=== PATIENT | male | born 1970 | race Caucasian/White ===

== ENCOUNTER 2016-10-22 22:22 | Emergency (ER) | payer OTHER, MEDICARE ==
[~2016-10-22] VITALS: Ht 167.6 cm; Wt 108.9 kg
[~2016-10-22 22:22] MED LIST: ABILIFY 10 MG10 MG PO; ALBUTEROL0.09 MG/A1 INH; AMARYL 2 MG2 MG PO; AMARYL4 MG PO; BENZTROPINE ME0.5 MG PO; BYDUREON2 M1; BYDUREON2 MG SC; DIVALPROEX SOD500 MG PO; ERGOCALCIFER50000 IU PO; FLEXERIL10 MG PO; IBU800 MG PO; IBUPROFEN600 M1 PO; IBUPROFEN800 M1 PO; JARDIANCE10 M1 PO; LEVAQUIN500 MG PO; LOVAZA1 GM PO; LYRICA100 MG PO; MEDROL4 M2 PO; METFORMIN HCL1000 MG PO; MOTRIN 600 MG600 MG PO; MOTRIN800 MG PO; PERCOCET 325 MG1 TA2 PO; SIMVASTATIN20 MG PO; TRAZODONE HCL50 M1 PO; TRAZODONE100 MG PO; TRIAMCINOLONE A15 G2 TOP; VICTOZA 3-0.6 MG/0.1 SC; VICTOZA6 MG/ML SC; VISTARIL50 M1 PO; WELCHOL 625 MG625 MG PO; ZETIA10 MG PO; [UNRECOGNIZED DRUG - OTHER]; [UNRECOGNIZED DRUG - OTHER] PO
[2016-10-22 22:34] VITALS: BP 111/76
[2016-10-23] MEDS ORDERED: GLIMEPIRIDE4 M1 PO (00:12)
[2016-10-23] MEDS ORDERED: GABAPENTIN300 M2 PO (00:13)
[2016-10-23] MEDS ORDERED: BENAZEPRIL-HCT1 EAC1 PO (00:13)
[2016-10-23] MEDS ORDERED: BENZTROPINE ME0.5 M1 PO (00:13)
[2016-10-23] MEDS ORDERED: PRAVASTATIN SOD20 M2 PO (00:13)
--- NOTE | 2016-10-23 00:32 | ED ANKLE/FOOT INJURY COMPLAINT ---
History of Present Illness General Chief Complaint: General Adult Stated Complaint: "BIBA STUBBED RT GREAT TOE " Source: patient Exam Limitations: no limitations Vital Signs & Intake/Output Vital Signs & Intake/Output Vital Signs Date Time Temp Pulse Resp B/P Pulse O2 O2 Flow FiO2 Ox Delivery Rate 10/22 2234 97.0 99 20 111/76 95 Room Air ED Intake and Output 10/23 0000 10/22 1200 Intake Total Output Total Balance Patient 240 lb Weight Allergies Coded Allergies: Penicillins (RASH, ABD PAIN 10/22/16) Reconcile Medications Aripiprazole (Abilify) 10 MG TABLET 1 TAB PO QAM MENTAL HEALTH (Reported) BENAZEPRIL/HYDROCHLOROTHIAZIDE (Benazepril-Hctz 10-12.5 MG Tab) 1 TAB TAB 1 TAB PO QAM BP (Reported) Benazepril/Hydrochlorothiazide (Benazepril-Hctz 10-12.5 MG Tab) 10 MG-12.5 MG TABLET 1 TAB PO DAILY BP (Reported) Benztropine Mesylate 0.5 MG TAB 1 TAB PO QPM MENTAL HEALTH (Reported) Benztropine Mesylate 0.5 MG TABLET 1 TAB PO BID ANXIETY (Reported) Colesevelam Hydrochloride (Welchol) 625 MG TABLET 2 TAB PO BID CHOLESTEROL ( Reported) Diclofenac Sodium 75 MG TABLET.DR 1 TAB PO BID PRN PAIN Divalproex Sodium (Divalproex Sodium ER) 500 MG TAB.ER.24H 2 TAB PO BID SEE MED NOTE (Reported) Empagliflozin (Jardiance) 10 MG TABLET 1 TAB PO DAILY DIABETES (Reported) ERGOCALCIFEROL (VITAMIN D2) (Ergocalciferol (Vitamin D2)) 50,000 IU CAP 1 CAP PO QTUES SUPPLEMENT (Reported) Ezetimibe (Zetia) 10 MG TAB 1 TAB PO QPM CHOLESTEROL (Reported) Gabapentin 300 MG CAPSULE 1 CAP PO TID NEUROPATHY (Reported) Glimepiride (Amaryl) 4 MG TAB 1 TAB PO BID DIABETES (Reported) Glimepiride 4 MG TABLET 1 TAB PO DAILY DM (Reported) Liraglutide (Victoza 3-Сергей) 0.6 MG/0.1 ML PEN.INJCTR 1.8 MG SC DAILY DIABETES (Reported) METFORMIN HCL (Metformin HCl) 1,000 MG TABLET 1 TAB PO BID DIABETES (Reported ) [id number]-[id number] Ethyl Esters (Lovaza) 1 GM CAP 2 CAP PO BID CHOLESTEROL ( Reported) Pravastatin Sodium 20 MG TABLET 1 TAB PO DAILY CHOL (Reported) Simvastatin (Zocor) 20 MG TAB 1 TAB PO QPM CHOLESTEROL (Reported) Triamcinolone Acetonide 0.5 % CREAM..G. 1 BERTIN TOP BID rash apply to affected area(s) Triage Note: TRIAGE: PT BIBA TO TRIAGE C/C R GREAT TOE STUB INJURY S/P KICKING NIGHTSTAND AFTER HAVING VERBAL ARGUEMENT WITH HIS ROOMMATE. Triage Nurses Notes Reviewed? yes HPI: Patient presents for evaluation of an abrupt onset of severe right great toe and foot pain that occurred earlier this evening after an argument with his roommate. Patient states he became so frustrated that he kicked a nightstand. Since then he's had a sharp severe and aching pain gets worse with ambulation and palpation. Past History Travel History Traveled to [place] past 21 day No Medical History Any Pertinent Medical History? see below for history Neurological: seizure, EPILEPSY EENT: NONE Cardiovascular: hypertension, hyperlipidemia Respiratory: NONE Gastrointestinal: NONE Hepatic: NONE Renal: NONE Musculoskeletal: NONE Psychiatric: depression Endocrine: diabetes Blood Disorders: NONE Cancer(s): NONE STRIP DEBURRER/Reproductive: NONE Surgical History Surgical History: hernia repair-inguinal Psychosocial History What is your primary language Arabic Tobacco Use: Never used ETOH Use: denies use Illicit Drug Use: denies illicit drug use Family History Family History, If Any: MOTHER FH: colon cancer FATHER FH: colon cancer FH: diabetes mellitus FH: hypertension Hx Contributory? No Review of Systems Review of Systems Constitutional: Reports: no symptoms. EENTM: Reports: no symptoms. Respiratory: Reports: no symptoms. Cardiovascular: Reports: no symptoms. GI: Reports: no symptoms. Genitourinary: Reports: no symptoms. Musculoskeletal: Reports: see HPI. Skin: Reports: no symptoms. Neurological/Psychological: Reports: no symptoms. Hematologic/Endocrine: Reports: no symptoms. Immunologic/Allergic: Reports: no symptoms. All Other Systems: Reviewed and Negative Physical Exam Physical Exam Leg/Knee/Thigh Left: SEE BELOW Comments: Gen.: Well-nourished, well-developed, no acute respiratory distress. Head: Normocephalic, atraumatic. Eyes: Normal inspection bilaterally Ears: Normal inspection bilaterally Nose: Normal inspection, nasal cannula in place Throat/mouth : Moist mucosa Neck: Supple, full range of motion, no goiter Heart: Regular rate and rhythm Lungs: Quiet respirations Back: Normal range of motion Extremities: Right foot/toes: Tenderness of the distal right foot and toes with no apparent soft tissue swelling. Mild ecchymoses of the dorsal aspect of the right great toe, second and third toes. The foot and toes are neurovascularly intact. Neurologic: Cranial nerves grossly intact, speech is clear Skin: warm and dry Psychiatric: Calm, cooperative, no apparent delusions or hallucinations Progress Differential Diagnosis: fracture, dislocation, sprain, contusion Plan of Care: Orders Procedure Date/time Status XRY-TOES, RIGHT 10/23 30 Active XRY-FOOT COMPLETE, RIGHT 10/23 30 Active Current Medications Sig/Darrin Start time Last Medication Dose Stop Time Status Admin Naproxen 500 MG ONCE ONE 10/23 199 UNVr (Naprosyn) 10/23 200 Diagnostic Imaging: Viewed by Me: Radiology Read. Discussed w/RAD: Radiology Read. Radiology Impression: PATIENT: VIKY PAK PRESENT AGE: 45 PATIENT ACCOUNT NO: [id number] : 69 LOCATION: [facility] ORDERING PHYSICIAN: RANJIT PANDA MD SERVICE DATE: 10/23/16 EXAM TYPE: RAD - XRY-FOOT COMPLETE, R; XRY-TOES, RIGHT EXAMINATION: XR FOOT, RIGHT XR TOES, RIGHT CLINICAL INFORMATION: Blunt trauma to the right toes and foot COMPARISON: None TECHNIQUE: 2 views of the right foot. 3 views of the right toes. FINDINGS: Osseous alignment is anatomic. No acute fracture is seen. Small chronic appearing osseous densities along the lateral aspect of the midfoot favor multifocal os peroneum. Posterior calcaneal spurring is noted. No significant focal soft tissue abnormality is seen. IMPRESSION: No acute findings identified. DICTATED BY: QUYEN TILLEY MD DATE/TIME DICTATED:10/23/16207 DIESEL DRAGLINE OPERATOR:YCRUS DATE/TIME TRANSCRIBED:10/23/16207 CONFIDENTIAL, DO NOT COPY WITHOUT APPROPRIATE AUTHORIZATION. <Electronically signed in Other Vendor System> SIGNED BY: QUYEN TILLEY MD 10/23/16215 Comments: Patient updated on test results and provided a cast shoe to support the foot and toes. Departure Departure Disposition: HOME OR SELF CARE Condition: Stable Clinical Impression Primary Impression: Contusion of great toe of right foot Qualifiers: Encounter type: initial encounter Damage to nail status: without damage Qualified Code: S90.111A - Contusion of right great toe without damage to nail, initial encounter Secondary Impressions: Right foot sprain Qualifiers: Encounter type: initial encounter Qualified Code: S93.601A - Unspecified sprain of right foot, initial encounter Referrals: JOSIAS VAUGHN (PCP/Family) Additional Instructions: Ice and elevation for 20 minutes at a time 2-3 times a day over the next 48 hours. Voltaren as prescribed for pain. Activity as otherwise tolerated. Follow-up with your primary care doctor for reevaluation in 10 days if not improving. Return if any concerns or sudden worsening. Please note that there might be incidental findings in your evaluation that are unrelated to the current emergency department visit. Please notify your primary care doctor about this emergency department visit in order to obtain and review all of the testing performed so that these incidental findings can be monitored as needed. If you had an x-ray performed, please understand that some fractures may not be seen on the initial set of x-rays. If your symptoms persist you might need a repeat set of x-rays to check for such a fracture. If you had a laceration evaluated, please understand that foreign bodies such as glass or wood may not be visible to the naked eye or on plain x-rays. If the wound becomes red, swollen, increasingly more painful or if there is any drainage from the wound, please have it reevaluated by a physician for the possibility of a retained foreign body. Thank you for choosing the [facility] Emergency Department for your care. It was a pleasure to serve you today. Ranjit Panda M.D. [facility] Departure Forms: Customer Survey General Discharge Information Prescriptions: Current Visit Scripts Diclofenac Sodium 1 TAB PO BID PRN PAIN #14 TAB
[2016-10-23] MEDS ORDERED: DICLOFENAC SODI75 M2 PO (01:56)
--- NOTE | 2016-10-23 02:16 | RADIOLOGY REPORT ---
EXAMINATION: XR FOOT, RIGHT XR TOES, RIGHT CLINICAL INFORMATION: Blunt trauma to the right toes and foot COMPARISON: None TECHNIQUE: 2 views of the right foot. 3 views of the right toes. FINDINGS: Osseous alignment is anatomic. No acute fracture is seen. Small chronic appearing osseous densities along the lateral aspect of the midfoot favor multifocal os peroneum. Posterior calcaneal spurring is noted. No significant focal soft tissue abnormality is seen. IMPRESSION: No acute findings identified.
== END 2016-10-23 02:05 ==
LOC: ERH 22:22
DX: S90.111A Contusion of right great toe without damage to nail, initial encounter (principal); S93.601A Unspecified sprain of right foot, initial encounter; W22.03XA Walked into furniture, initial encounter
CPT/HCPCS: 73630-RT; 73660-RT

== ENCOUNTER 2016-11-14 22:23 | Emergency (ER) | payer OTHER, MEDICARE ==
[~2016-11-14] VITALS: Ht 167.6 cm; Wt 106.1 kg
[~2016-11-14 22:23] MED LIST changes: +BENAZEPRIL-HCT1 EAC1 PO; +BENZTROPINE ME0.5 M1 PO; +DICLOFENAC SODI75 M2 PO; +GABAPENTIN300 M2 PO; +GLIMEPIRIDE4 M1 PO; +PRAVASTATIN SOD20 M2 PO
--- NOTE | 2016-11-14 23:19 | RADIOLOGY REPORT ---
EXAMINATION: XR WRIST, RIGHT CLINICAL INFORMATION: Pain. COMPARISON: Right wrist 08/10/2013 TECHNIQUE: 4 views. of the right wrist. FINDINGS: Expansile radiolucent lesion of the distal ulnar diaphyseal shaft seen on the prior exam of 08/11/2013 now has a nondisplaced transverse fracture through it. Distal radius normal. The carpal bones, radiocarpal and metacarpal carpal joints are normal. IMPRESSION: Nondisplaced transverse fracture through expansile radiolucent lesion in the distal ulna.
--- NOTE | 2016-11-14 23:26 | ED UPPER/LOWER EXTREMITY COMPL ---
History of Present Illness General Chief Complaint: Hand or Wrist Injury Stated Complaint: FALL, RIGHT WRIST INJURY Source: patient Exam Limitations: no limitations Vital Signs & Intake/Output Vital Signs & Intake/Output Vital Signs Date Time Temp Pulse Resp B/P Pulse O2 O2 Flow FiO2 Ox Delivery Rate 11/14 2330 97.9 99 18 136/89 95 Room Air ED Intake and Output 11/15 0000 03 1200 Intake Total Output Total Balance Patient 234 lb Weight Allergies Coded Allergies: Penicillins (RASH, ABD PAIN 10/22/16) Reconcile Medications Aripiprazole (Abilify) 10 MG TABLET 1 TAB PO QAM MENTAL HEALTH (Reported) BENAZEPRIL/HYDROCHLOROTHIAZIDE (Benazepril-Hctz 10-12.5 MG Tab) 1 TAB TAB 1 TAB PO QAM BP (Reported) Benazepril/Hydrochlorothiazide (Benazepril-Hctz 10-12.5 MG Tab) 10 MG-12.5 MG TABLET 1 TAB PO DAILY BP (Reported) Benztropine Mesylate 0.5 MG TAB 1 TAB PO QPM MENTAL HEALTH (Reported) Benztropine Mesylate 0.5 MG TABLET 1 TAB PO BID ANXIETY (Reported) Colesevelam Hydrochloride (Welchol) 625 MG TABLET 2 TAB PO BID CHOLESTEROL ( Reported) Diclofenac Sodium 75 MG TABLET.DR 1 TAB PO BID PRN PAIN Divalproex Sodium (Divalproex Sodium ER) 500 MG TAB.ER.24H 2 TAB PO BID SEE MED NOTE (Reported) Empagliflozin (Jardiance) 10 MG TABLET 1 TAB PO DAILY DIABETES (Reported) ERGOCALCIFEROL (VITAMIN D2) (Ergocalciferol (Vitamin D2)) 50,000 IU CAP 1 CAP PO QTUES SUPPLEMENT (Reported) Ezetimibe (Zetia) 10 MG TAB 1 TAB PO QPM CHOLESTEROL (Reported) Gabapentin 300 MG CAPSULE 1 CAP PO TID NEUROPATHY (Reported) Glimepiride (Amaryl) 4 MG TAB 1 TAB PO BID DIABETES (Reported) Glimepiride 4 MG TABLET 1 TAB PO DAILY DM (Reported) Ibuprofen 600 MG TABLET 1 TAB PO TID PRN PAIN with food Liraglutide (Victoza 3-Сергей) 0.6 MG/0.1 ML PEN.INJCTR 1.8 MG SC DAILY DIABETES (Reported) METFORMIN HCL (Metformin HCl) 1,000 MG TABLET 1 TAB PO BID DIABETES (Reported ) Wieeg-4-Aggy Ethyl Esters (Lovaza) 1 GM CAP 2 CAP PO BID CHOLESTEROL ( Reported) Pravastatin Sodium 20 MG TABLET 1 TAB PO DAILY CHOL (Reported) Simvastatin (Zocor) 20 MG TAB 1 TAB PO QPM CHOLESTEROL (Reported) Triamcinolone Acetonide 0.5 % CREAM..G. 1 BERTIN TOP BID rash apply to affected area(s) Triage Nurses Notes Reviewed? yes Onset: Abrupt Duration: constant Timing: single episode today Severity: severe Severity Numbers: 10 HPI: PATIENT IS A 46-YEAR-OLD MALE WHO PRESENTS EMERGENCY AND THAT TODAY PATIENT TRIPPED IN HIS house in which he braces fall with his right arm in which the forearm mid aspect struck a piece of furniture resulting acute onset of sharp stabbing severe pain. Skin is intact. Denies any head strike. Patient is right arm dominant. Patient denies any elbow or wrist pain. (AMY HAHN) Past History Travel History Traveled to [place] past 21 day No Medical History Any Pertinent Medical History? see below for history Neurological: seizure, EPILEPSY EENT: NONE Cardiovascular: hypertension, hyperlipidemia Respiratory: NONE Gastrointestinal: NONE Hepatic: NONE Renal: NONE Musculoskeletal: NONE Psychiatric: depression Endocrine: diabetes Blood Disorders: NONE Cancer(s): NONE COMMUNITY HEALTH NURSE/Reproductive: NONE Surgical History Surgical History: hernia repair-inguinal Psychosocial History What is your primary language Bolivian Family History Family History, If Any: MOTHER FH: colon cancer FATHER FH: colon cancer FH: diabetes mellitus FH: hypertension Hx Contributory? No (AMY HAHN) Review of Systems Review of Systems Constitutional: Reports: no symptoms. EENTM: Reports: no symptoms. Respiratory: Reports: no symptoms. Cardiovascular: Reports: no symptoms. Gastrointestinal/Abdominal: Reports: no symptoms. Genitourinary: Reports: no symptoms. Musculoskeletal: Reports: see HPI, joint pain. Skin: Reports: no symptoms. Neurological/Psychological: Reports: no symptoms. Hematologic/Endocrine: Reports: no symptoms. Immunological: Reports: no symptoms. All Other Systems: Reviewed and Negative (AMY HAHN) Physical Exam Physical Exam General Appearance: no apparent distress, alert, comfortable Neurologic/Tendon: normal sensation, normal motor functions, normal tendon functions, responds to pain, no evidence tendon injury, no pulse deficit Skin: intact, normal color, warm/dry Comments: Well-developed well-nourished no apparent distress. HEENT: Atraumatic, extraocular motion intact Neck: Supple, no lymphadenopathy Back: Nontender Respiratory: No respiratory distress Extremities: Right elbow nontender normal inspection full active range of motion Right wrist normal inspection nontender full active range of motion Right upper extremity dermatomes intact radial pulse +2 mid forearm swelling and point tenderness noted Neuro: Alert and oriented x3 Psych: Mood affect normal, normal memory normal judgment. (AMY HAHN) Progress Differential Diagnosis: arterial insufficiency, compartment syndrome, contusion, dislocation, DVT, fracture, gout, septic arthritis, sprain, tendon injury Plan of Care: Orders Procedure Date/time Status Durable Medical Equipment 11/14 5169 Active Patient was made aware of fracture splint and shoulder immobilizer was placed without complications patient was strongly advised to follow up with orthopedic doctor tomorrow in which patient will need outpatient CT scan. Patient had normal steady gait on discharge (AMY HAHN) Diagnostic Imaging: Viewed by Me: Radiology Read. Radiology Impression: acute abnormality, fracture Comments: PATIENT: VIKY PAK PRESENT AGE: 46 PATIENT ACCOUNT NO: [id number] : 69 LOCATION: [facility] ORDERING PHYSICIAN: RADHA LEWIS MD SERVICE DATE: 11/14/16 EXAM TYPE: RAD - XRY-WRIST COMPLETE-RIGHT EXAMINATION: XR WRIST, RIGHT CLINICAL INFORMATION: Pain. COMPARISON: Right wrist 08/10/2013 TECHNIQUE: 4 views. of the right wrist. FINDINGS: Expansile radiolucent lesion of the distal ulnar diaphyseal shaft seen on the prior exam of 08/11/2013 now has a nondisplaced transverse fracture through it. Distal radius normal. The carpal bones, radiocarpal and metacarpal carpal joints are normal. IMPRESSION: Nondisplaced transverse fracture through expansile radiolucent lesion in the distal ulna. (AMY HAHN) Departure Departure Disposition: HOME OR SELF CARE Condition: Stable Clinical Impression Primary Impression: Left ulnar fracture Referrals: JOSIAS VAUGHN (PCP/Family) NIRMALA FAIR,DORON Ya Additional Instructions: As discussed in the PRESCRIPTION of ibuprofen for pain and inflammation. Follow up tomorrow and call orthopedic Dr. SILVESTRE for further evaluation. Begin to use the shoulder immobilizer and leave the splint on the has been applied here in the emergency room at all times and to follow-up with orthopedic doctor. If symptoms worsen return to the emergency room Departure Forms: Customer Survey General Discharge Information Prescriptions: Current Visit Scripts Ibuprofen 1 TAB PO TID PRN PAIN #21 TAB with food (AMY HAHN) PA/JOB RECRUITER Co-Sign Statement Statement: ED Attending supervision documentation- [] I saw and evaluated the patient. I have also reviewed all the pertinent lab results and diagnostic results. I agree with the findings and the plan of care as documented in the PA's/JOB RECRUITER's documentation. [X] I have reviewed the ED Record and agree with the PA's/JOB RECRUITER's documentation. [] Additions or exceptions (if any) to the PAs/JOB RECRUITER's note and plan are summarized below: [] (DEBBIE FAIR,RADHA Cohen) Procedures Splinting Location: right upper extremity Manual Alignment Performed: No Hand-Made Type: orthoglass Splint: sugar-tong Splint Applied By: splint applied by me Pre-Proc Neuro Vasc Exam: normal Post-Proc Neuro Vasc Exam: normal Progress: using webril I placed a sugar tong splint to right forearm and then applied Ethan wrap pre-and post-neurovascular was intact shoulder immobilizer was then placed pre-and post-neurovascular was intact. (AMY HAHN)
[2016-11-14 23:30] VITALS: BP 136/89
[2016-11-14] MEDS ORDERED: IBUPROFEN600 M1 PO (23:41)
== END 2016-11-15 00:19 ==
LOC: ERH 22:23
DX: S52.602A Unspecified fracture of lower end of left ulna, initial encounter for closed fracture (principal); W18.09XA Striking against other object with subsequent fall, initial encounter
CPT/HCPCS: 73110-RT

== ENCOUNTER 2016-12-28 17:56 | Emergency (ER) | payer OTHER, MEDICARE ==
[~2016-12-28] VITALS: Ht 167.6 cm; Wt 108.9 kg
[2016-12-28 18:17] VITALS: BP 122/74
--- NOTE | 2016-12-28 20:16 | ED GENERAL ADULT ---
History of Present Illness General Chief Complaint: General Adult Stated Complaint: HYPERGLYCEMIA Source: patient Exam Limitations: no limitations Vital Signs & Intake/Output Vital Signs & Intake/Output Vital Signs Date Time Temp Pulse Resp B/P B/P Pulse O2 O2 Flow FiO2 Mean Ox Delivery Rate 12/28 2012 Room Air 12/28 1817 98.0 97 18 122/74 97 Room Air Allergies Coded Allergies: Penicillins (RASH, ABD PAIN 10/22/16) Reconcile Medications Aripiprazole (Abilify) 10 MG TABLET 1 TAB PO QAM MENTAL HEALTH (Reported) BENAZEPRIL/HYDROCHLOROTHIAZIDE (Benazepril-Hctz 10-12.5 MG Tab) 1 TAB TAB 1 TAB PO QAM BP (Reported) Benazepril/Hydrochlorothiazide (Benazepril-Hctz 10-12.5 MG Tab) 10 MG-12.5 MG TABLET 1 TAB PO DAILY BP (Reported) Benztropine Mesylate 0.5 MG TAB 1 TAB PO QPM MENTAL HEALTH (Reported) Benztropine Mesylate 0.5 MG TABLET 1 TAB PO BID ANXIETY (Reported) Colesevelam Hydrochloride (Welchol) 625 MG TABLET 2 TAB PO BID CHOLESTEROL ( Reported) Diclofenac Sodium 75 MG TABLET.DR 1 TAB PO BID PRN PAIN Divalproex Sodium (Divalproex Sodium ER) 500 MG TAB.ER.24H 2 TAB PO BID SEE MED NOTE (Reported) Empagliflozin (Jardiance) 10 MG TABLET 1 TAB PO DAILY DIABETES (Reported) ERGOCALCIFEROL (VITAMIN D2) (Ergocalciferol (Vitamin D2)) 50,000 IU CAP 1 CAP PO QTUES SUPPLEMENT (Reported) Ezetimibe (Zetia) 10 MG TAB 1 TAB PO QPM CHOLESTEROL (Reported) Gabapentin 300 MG CAPSULE 1 CAP PO TID NEUROPATHY (Reported) Glimepiride (Amaryl) 4 MG TAB 1 TAB PO BID DIABETES (Reported) Glimepiride 4 MG TABLET 1 TAB PO DAILY DM (Reported) Ibuprofen 600 MG TABLET 1 TAB PO TID PRN PAIN with food Liraglutide (Victoza 3-Сергей) 0.6 MG/0.1 ML PEN.INJCTR 1.8 MG SC DAILY DIABETES (Reported) METFORMIN HCL (Metformin HCl) 1,000 MG TABLET 1 TAB PO BID DIABETES (Reported ) Vfixp-3-Swty Ethyl Esters (Lovaza) 1 GM CAP 2 CAP PO BID CHOLESTEROL ( Reported) Pravastatin Sodium 20 MG TABLET 1 TAB PO DAILY CHOL (Reported) Simvastatin (Zocor) 20 MG TAB 1 TAB PO QPM CHOLESTEROL (Reported) Triamcinolone Acetonide 0.5 % CREAM..G. 1 BERTIN TOP BID rash apply to affected area(s) Triage Note: KOLE, PT WALKED TO FIRE DEPARTMENT, C/O HIGH BS, 400, BILATERAL LEG WEAKNESS AND PAIN. Triage Nurses Notes Reviewed? yes Onset: Gradual Duration: hour(s): (4) Timing: recent history Injury Environment: home Severity: moderate Severity Numbers: 6 Modifying Factors: Worsens With: movement. HPI: Patient is a 46-year-old male with history of seizure disorder, diabetes presenting to the emergency Department chief complaint of episode of hyperglycemia. Patient reports that the visiting nurse checked his blood glucose level prior to eating dinner and it was 400. He then was medicated appropriately and then ate chicken nuggets. Patient calming and also because of worsening leg pain. History of diabetic neuropathy and reports that the medications he's been given are not helping him. He thinks he may need a walker. Denies any trauma. Denies any nausea or vomiting. No confusion or headaches. Denies any visual changes. No chest pain or palpitations. Denies any urinary frequency urgency or dysuria. No hematuria. (KIMBERLEE ENGEL) Past History Travel History Traveled to [place] past 21 day No Medical History Any Pertinent Medical History? 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 No (KIMBERLEE ENGEL) Review of Systems Review of Systems Constitutional: Reports: no symptoms. Comments Review of systems: See HPI, All other systems negative. Constitutional, no chills fever or weight loss HEENT: No visual changes no sore throat no congestion Cardiovascular: No chest pain ,palpitation , orthopnea or ankle swelling Skin, no jaundice no rashes Respiratory: No dyspnea cough sputum or hemoptysis GI: No nausea no vomiting : No dysuria No hematuria Muscle skeletal: no back pain, no neck pain, Neurologic: No numbness no confusion, no headaches Psych: No stress anxiety or depression,. Heme/endocrine: No bruising no bleeding no polyuria or polydipsia Immunology: No splenectomy or history of AIDS (KIMBERLEE ENGEL) Physical Exam Physical Exam General Appearance: well developed/nourished, no apparent distress, alert, comfortable, obese Comments: Well-developed well-nourished person in no acute distress HEENT: Conjunctivae injected bilaterally. Pupils equally round and reactive to light and accommodation. Nose is atraumatic. Pharynx normal. No swelling or edema. Neck: Supple, no lymphadenopathy, normal range of motion without pain or tenderness Back: Nontender, no CVA tenderness. Full range of motion Cardiovascular: Regular rate and rhythms no murmurs rubs or gallops, normal JVP Respiratory: Chest nontender. No respiratory distress.breath sounds clear to auscultation bilaterally Abdomen: Soft, nontender nondistended, no appreciable organomegaly. Normal bowel sounds. No ascites. Nontender, no rebound or guarding. Extremity: No edema, no calf tenderness to palpation, normal and equal pulses. Negative modified straight leg raise bilaterally. Muscular strength is 5 out of 5 in upper and lower extremity as well seated on the stretcher. Neuro: Alert oriented x3, patellar reflexes are 2+ bilaterally. Ambulatory over 100 feet with steady gait. Skin: No appreciable rash on exposed skin, skin is warm and dry. Psych: Mood and affect is normal, memory and judgment is normal. Core Measures ACS in differential dx? No CVA/TIA Diagnosis: No Severe Sepsis Present: No Septic Shock Present: No (KIMBERLEE ENGEL) Progress Differential Diagnoses I considered the following diagnoses in my evaluation of the patient: Worsening diabetic neuropathy, uncontrolled diabetes, hyperglycemia uncomplicated Plan of Care: Orders Procedure Date/time Status URINALYSIS 12/29 2027 Complete Laboratory Tests 12/28/162027: Urine Color YEL, Urine Clarity CLEAR, Urine pH 6.0, Ur Specific [place] 1.020, Urine Protein NEG, Urine Ketones 15 H, Urine Nitrite NEG, Urine Bilirubin NEG, Urine Urobilinogen 0.2, Ur Leukocyte Esterase NEG, Ur Microscopic EXAM NOT REQUIRED, Urine Hemoglobin NEG, Urine Glucose >=1000 H Initial ED EKG: none Comments: Patient reports significant improvement with Toradol. This will continue pain medications that he has at home. Patient will be discharged home. Blood glucose level is trending downward. He'll continue to monitor at home. (KIMBERLEE ENGEL) Departure Departure Time of Disposition: 2041 Disposition: HOME OR SELF CARE Condition: Stable Clinical Impression Primary Impression: Hyperglycemia Secondary Impressions: Leg pain Qualifiers: Laterality: bilateral Qualified Codes: M79.604 - Pain in right leg; M79.605 - Pain in left leg Referrals: JOSIAS VAUGHN (PCP/Family) Additional Instructions: Follow-up with your perl software engineer and primary care physician call to make an appointment. Take pain medication as prescribed. Return for worsening symptoms or concerns. Close eye on blood glucose level. Departure Forms: Customer Survey General Discharge Information (KIMBERLEE ENGEL) PA/SHEET METAL ERECTOR Co-Sign Statement Statement: ED Attending supervision documentation- [] I saw and evaluated the patient. I have also reviewed all the pertinent lab results and diagnostic results. I agree with the findings and the plan of care as documented in the PA's/SHEET METAL ERECTOR's documentation. [X] I have reviewed the ED Record and agree with the PA's/SHEET METAL ERECTOR's documentation. [] Additions or exceptions (if any) to the PAs/SHEET METAL ERECTOR's note and plan are summarized below: [] (JAKUB FAIR,GOLDEN) Critical Care Note Critical Care Note Critical Care Time: non-applicable (KIMBERLEE ENGEL)
== END 2016-12-28 21:03 ==
LOC: ERH 17:56
DX: R73.9 Hyperglycemia, unspecified (principal); M79.605 Pain in left leg; M79.604 Pain in right leg
CPT/HCPCS: 81003; 96372; J1885

== ENCOUNTER 2017-03-15 22:46 | Emergency (ER) | payer OTHER, MEDICARE ==
[~2017-03-15] VITALS: Ht 167.6 cm; Wt 105.7 kg
--- NOTE | 2017-03-15 23:42 | ED NECK/BACK PAIN COMPLAINT ---
History of Present Illness General Chief Complaint: Low Back Pain/Injury Stated Complaint: BIBA FOR BACK PAIN Source: patient, old records Exam Limitations: no limitations Vital Signs & Intake/Output Vital Signs & Intake/Output Vital Signs Date Time Temp Pulse Resp B/P B/P Pulse O2 O2 Flow FiO2 Mean Ox Delivery Rate 03/16 0043 98.3 78 18 120/81 98 Room Air 03/15 2250 98.1 82 18 118/83 96 Room Air ED Intake and Output 03/16 0000 03/15 1200 Intake Total Output Total Balance Patient 233 lb Weight Weight Reported by Patient Measurement Method Allergies Coded Allergies: Penicillins (RASH, ABD PAIN 10/22/16) Reconcile Medications Aripiprazole (Abilify) 10 MG TABLET 1 TAB PO QAM MENTAL HEALTH (Reported) BENAZEPRIL/HYDROCHLOROTHIAZIDE (Benazepril-Hctz 10-12.5 MG Tab) 1 TAB TAB 1 TAB PO QAM BP (Reported) Benazepril/Hydrochlorothiazide (Benazepril-Hctz 10-12.5 MG Tab) 10 MG-12.5 MG TABLET 1 TAB PO DAILY BP (Reported) Benztropine Mesylate 0.5 MG TAB 1 TAB PO QPM MENTAL HEALTH (Reported) Benztropine Mesylate 0.5 MG TABLET 1 TAB PO BID ANXIETY (Reported) Colesevelam Hydrochloride (Welchol) 625 MG TABLET 2 TAB PO BID CHOLESTEROL ( Reported) Diclofenac Sodium 75 MG TABLET.DR 1 TAB PO BID PRN PAIN Divalproex Sodium (Divalproex Sodium ER) 500 MG TAB.ER.24H 2 TAB PO BID SEE MED NOTE (Reported) Empagliflozin (Jardiance) 10 MG TABLET 1 TAB PO DAILY DIABETES (Reported) ERGOCALCIFEROL (VITAMIN D2) (Ergocalciferol (Vitamin D2)) 50,000 IU CAP 1 CAP PO QTUES SUPPLEMENT (Reported) Ezetimibe (Zetia) 10 MG TAB 1 TAB PO QPM CHOLESTEROL (Reported) Gabapentin 300 MG CAPSULE 1 CAP PO TID NEUROPATHY (Reported) Glimepiride (Amaryl) 4 MG TAB 1 TAB PO BID DIABETES (Reported) Glimepiride 4 MG TABLET 1 TAB PO DAILY DM (Reported) Ibuprofen 600 MG TABLET 1 TAB PO TID PRN PAIN with food Liraglutide (Victoza 3-Сергей) 0.6 MG/0.1 ML PEN.INJCTR 1.8 MG SC DAILY DIABETES (Reported) METFORMIN HCL (Metformin HCl) 1,000 MG TABLET 1 TAB PO BID DIABETES (Reported ) Ruymp-1-Klrw Ethyl Esters (Lovaza) 1 GM CAP 2 CAP PO BID CHOLESTEROL ( Reported) Pravastatin Sodium 20 MG TABLET 1 TAB PO DAILY CHOL (Reported) Simvastatin (Zocor) 20 MG TAB 1 TAB PO QPM CHOLESTEROL (Reported) Triamcinolone Acetonide 0.5 % CREAM..G. 1 BERTIN TOP BID rash apply to affected area(s) Triage Note: PT BIBA FROM [facility] C/O SUDDEN ONSET LOW BACK PAIN THAT GOES DOWN BOTH LEGS. PT WAS WRITING A SHOPPING LIST WHEN THE PAIN STARTED 30 MINUTES AGO. [facility] BE BROUGHT TO THE ER. Triage Nurses Notes Reviewed? yes Onset: Abrupt Duration: hour(s): (1) Timing: no prior history Quality/Severity: moderate Location: lumbar spine, paraspinous muscles Radiation: buttocks, upper legs Context: SITTING DOWN Method of Injury: unknown HPI: Patient is a 46-year-old male presenting to the emergency department with chief complaint of low back pain that started suddenly while he was sitting down at home. Pain is currently moderate. Pain is worse with movement. Denies any numbness or tingling but reports that the pain radiates down into the buttocks and upper legs. Denies any lower extremity weakness. Denies taking anything prior to arrival to help with pain. Denies any urinary incontinence or retention. No abdominal pain chest pain or shortness of breath. He reports that he walked approximately 5 minutes of [facility] and then asked them to call the ambulance. He was [place] the entire way here. Denies any urinary frequency or urgency or dysuria. No hematuria. (KIMBERLEE ENGEL) Past History Travel History Traveled to [place] past 21 day No Medical History Any Pertinent Medical History? 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 No (KIMBERLEE ENGEL) Review of Systems Review of Systems Constitutional: Reports: no symptoms. Comments Review of systems: See HPI, All other systems negative. Constitutional, no chills fever or weight loss HEENT: No visual changes no sore throat no congestion Cardiovascular: No chest pain ,palpitation , orthopnea or ankle swelling Skin, no jaundice no rashes Respiratory: No dyspnea cough sputum or hemoptysis GI: No nausea no vomiting : No dysuria No hematuria Muscle skeletal: no neck pain, Neurologic: No numbness no confusion, no headaches Psych: No stress anxiety or depression,. Heme/endocrine: No bruising no bleeding no polyuria or polydipsia Immunology: No splenectomy or history of AIDS (KIMBERLEE ENGEL) Physical Exam Physical Exam General Appearance: well developed/nourished, no apparent distress, alert, awake , comfortable Neck: normal inspection, supple, full range of motion Comments: Well-developed well-nourished person in no acute distress HEENT: Conjunctivae is injected bilaterally. Pupils equally round and reactive to light and accommodation. Nose is atraumatic. Neck: Supple, full range of motion, no C-spine tenderness. Back: Tenderness to palpation along the thoracic and lumbar paraspinal muscles. Her tenderness to palpation over L4, L5. No step-off deformities appreciated. Negative modified straight leg raise bilaterally. Cardiovascular: Regular rate and rhythms no murmurs rubs or gallops, normal JVP Respiratory: Chest nontender. No respiratory distress.breath sounds clear to auscultation bilaterally Abdomen: Soft, nontender , obese. Extremity: No edema, no calf tenderness to palpation, normal and equal pulses. Neuro: Alert oriented x3, motor sensory normal, patellar reflexes are 2+ bilaterally. Skin: No appreciable rash on exposed skin, skin is warm and dry. Psych: Mood and affect is normal, memory and judgment is normal. (KIMBERLEE ENGEL) Progress Differential Diagnosis: herniated disc, myofascial strain, pyelo/UTI, sciatica, ureterolithiasis Plan of Care: Orders Procedure Date/time Status XRY-LUMBOSACRAL SPINE 4 VIEWS 03/15 2341 Active Diagnostic Imaging: Viewed by Me: Radiology Read. Discussed w/RAD: Radiology Read. Radiology Impression: PATIENT: VIKY PAK PRESENT AGE: 46 PATIENT ACCOUNT NO: [id number] : 69 LOCATION: [facility] ORDERING PHYSICIAN: KIMBERLEE PERZE SERVICE DATE: 03/15/17 EXAM TYPE: RAD - XRY-LUMBOSACRAL SPINE 4 VIEWS EXAMINATION: XR LUMBOSACRAL SPINE CLINICAL INFORMATION: Pain. Injury. COMPARISON: Lumbar spine 04/20/2013. Dictated report only. Images not available for review. TECHNIQUE: AP. Lateral. Cone-down AP and lateral lumbosacral junction view. FINDINGS: Lumbar vertebrae have normal height. No fracture. No bone destruction. There is degenerative spondylosis. Bridging osteophytes at the anterior endplates of lower thoracic spine. Degenerative lipping at the anterior endplates of lumbar vertebrae. Slight narrowing of the height of the L4-L5 disc. Facet joint arthrosis most significant at L4-L5 and L5-S1. Sacroiliac joints are normal. Moderate volume of stool in colon. Nonobstructive bowel pattern. IMPRESSION: 1. No acute abnormality. 2. Multilevel degenerative spondylosis of the spine. DICTATED BY: YURY FELIX MD DATE/TIME DICTATED:03/16/1725 PEER TUTOR:CYRUS DATE/TIME TRANSCRIBED:03/16/1725 Comments: Patient informed of x-ray results. No signs of acute fracture or abnormality. There are degenerative changes. Patient will be treated symptomatically. Informed to follow-up with orthopedics if symptoms persist. (ANJU PEREZ,KIMBERLEE) Departure Departure Time of Disposition: 34 Disposition: HOME OR SELF CARE Condition: Stable Clinical Impression Primary Impression: Back pain Qualifiers: Back pain location: low back pain Chronicity: unspecified Back pain laterality: bilateral Sciatica presence: with sciatica Sciatica laterality: bilateral sciatica Qualified Codes: M54.42 - Lumbago with sciatica, left side; M54.41 - Lumbago with sciatica, right side Referrals: JOSIAS VAUGHN (PCP/Family) NIRMALA FAIR,DORON Ya Additional Instructions: Follow-up with your primary care physician call to make an appointment. Take medications. Since prescribed out with pain. Return for worsening symptoms or concerns. Avoid heavy lifting or 7 movements. If symptoms persist follow-up with orthopedic. Departure Forms: Customer Survey General Discharge Information (KIMBERLEE ENGEL) PA/RN ENDOSCOPY Co-Sign Statement Statement: ED Attending supervision documentation- [] I saw and evaluated the patient. I have also reviewed all the pertinent lab results and diagnostic results. I agree with the findings and the plan of care as documented in the PA's/RN ENDOSCOPY's documentation. [x] I have reviewed the ED Record and agree with the PA's/RN ENDOSCOPY's documentation. [] Additions or exceptions (if any) to the PAs/RN ENDOSCOPY's note and plan are summarized below: [] (TAB FAIR,ELIZABETH Ya)
--- NOTE | 2017-03-16 00:31 | RADIOLOGY REPORT ---
EXAMINATION: XR LUMBOSACRAL SPINE CLINICAL INFORMATION: Pain. Injury. COMPARISON: Lumbar spine 04/20/2013. Dictated report only. Images not available for review. TECHNIQUE: AP. Lateral. Cone-down AP and lateral lumbosacral junction view. FINDINGS: Lumbar vertebrae have normal height. No fracture. No bone destruction. There is degenerative spondylosis. Bridging osteophytes at the anterior endplates of lower thoracic spine. Degenerative lipping at the anterior endplates of lumbar vertebrae. Slight narrowing of the height of the L4-L5 disc. Facet joint arthrosis most significant at L4-L5 and L5-S1. Sacroiliac joints are normal. Moderate volume of stool in colon. Nonobstructive bowel pattern. IMPRESSION: 1. No acute abnormality. 2. Multilevel degenerative spondylosis of the spine.
[2017-03-16 00:43] VITALS: BP 120/81
== END 2017-03-16 00:44 ==
LOC: ERH 22:46
DX: M54.5 Low back pain (principal); M79.661 Pain in right lower leg; M79.662 Pain in left lower leg; G40.909 Epilepsy, unspecified, not intractable, without status epilepticus; I10 Essential (primary) hypertension; E78.5 Hyperlipidemia, unspecified; E11.9 Type 2 diabetes mellitus without complications
CPT/HCPCS: 72110

== ENCOUNTER 2017-12-02 00:16 | Emergency (ER) | payer OTHER, MEDICARE ==
[~2017-12-02] VITALS: Ht 167.6 cm; Wt 84.8 kg
[~2017-12-02 00:16] MED LIST changes: +CYCLOBENZAPRINE10 M1 PO
[2017-12-02 00:19] VITALS: BP 105/59
--- NOTE | 2017-12-02 00:24 | ED NECK/BACK PAIN COMPLAINT ---
History of Present Illness General Chief Complaint: Low Back Pain/Injury Stated Complaint: BACK PAIN Source: patient, EMS Exam Limitations: no limitations Vital Signs & Intake/Output Vital Signs & Intake/Output Vital Signs Date Time Temp Pulse Resp B/P B/P Pulse O2 O2 Flow FiO2 Mean Ox Delivery Rate 12/02 0019 97.4 92 20 105/59 96 Room Air Allergies Coded Allergies: Penicillins (RASH, ABD PAIN 10/22/16) Reconcile Medications Aripiprazole (Abilify) 10 MG TABLET 1 TAB PO QAM MENTAL HEALTH (Reported) BENAZEPRIL/HYDROCHLOROTHIAZIDE (Benazepril-Hctz 10-12.5 MG Tab) 1 TAB TAB 1 TAB PO QAM BP (Reported) Benazepril/Hydrochlorothiazide (Benazepril-Hctz 10-12.5 MG Tab) 10 MG-12.5 MG TABLET 1 TAB PO DAILY BP (Reported) Benztropine Mesylate 0.5 MG TAB 1 TAB PO QPM MENTAL HEALTH (Reported) Benztropine Mesylate 0.5 MG TABLET 1 TAB PO BID ANXIETY (Reported) Colesevelam Hydrochloride (Welchol) 625 MG TABLET 2 TAB PO BID CHOLESTEROL ( Reported) Cyclobenzaprine HCl 10 MG TABLET 1 TAB PO TID PRN MUSCLE SPASMS Cyclobenzaprine HCl 10 MG TABLET 1 TAB PO TID PRN muscle spasm Diclofenac Sodium 75 MG TABLET.DR 1 TAB PO BID PRN PAIN Divalproex Sodium (Divalproex Sodium ER) 500 MG TAB.ER.24H 2 TAB PO BID SEE MED NOTE (Reported) Empagliflozin (Jardiance) 10 MG TABLET 1 TAB PO DAILY DIABETES (Reported) ERGOCALCIFEROL (VITAMIN D2) (Ergocalciferol (Vitamin D2)) 50,000 IU CAP 1 CAP PO QTUES SUPPLEMENT (Reported) Ezetimibe (Zetia) 10 MG TAB 1 TAB PO QPM CHOLESTEROL (Reported) Gabapentin 300 MG CAPSULE 1 CAP PO TID NEUROPATHY (Reported) Glimepiride (Amaryl) 4 MG TAB 1 TAB PO BID DIABETES (Reported) Glimepiride 4 MG TABLET 1 TAB PO DAILY DM (Reported) Ibuprofen 600 MG TABLET 1 TAB PO Q6P PRN PAIN with food Ibuprofen 600 MG TABLET 1 TAB PO TID PRN PAIN with food Liraglutide (Victoza 3-Сергей) 0.6 MG/0.1 ML PEN.INJCTR 1.8 MG SC DAILY DIABETES (Reported) METFORMIN HCL (Metformin HCl) 1,000 MG TABLET 1 TAB PO BID DIABETES (Reported ) Txbfo-1-[id number] Ethyl Esters (Lovaza) 1 GM CAP 2 CAP PO BID CHOLESTEROL ( Reported) Pravastatin Sodium 20 MG TABLET 1 TAB PO DAILY CHOL (Reported) Simvastatin (Zocor) 20 MG TAB 1 TAB PO QPM CHOLESTEROL (Reported) Triamcinolone Acetonide 0.5 % CREAM..G. 1 BERTIN TOP BID rash apply to affected area(s) Triage Note: PER PT AND EMS ARRIVES WITH 10/10 BACK PAIN AND BILAT LEG PAIN. DENIES INJURY NO DIFF AMBULATION Triage Nurses Notes Reviewed? yes Onset: Gradual Duration: week(s):, waxing and waning Timing: recent history Quality/Severity: moderate Location: lumbar spine Radiation: "i HAVE neuropathy on my lower legs." Context: chronic back pain Method of Injury: unknown Loss of Consciousness: no loss of consciousness Modifying Factors: movement, pain medication Associated Symptoms: muscle spasm HPI: 47 yo gentleman presents with lower back pain x many weeks. He also notes a non specific rash on his bilateral forearms, non pruritic, with out pain, redness, tenderness. He usually takes ibuprofen 600mg with moderate effect, "but with the rash and my back pain, I called 911." He is otherwise well. Past History Travel History Traveled to [place] past 21 day No Medical History Any Pertinent Medical History? 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 No Review of Systems Review of Systems Constitutional: Reports: no symptoms. Eyes: Reports: no symptoms. Ears, Nose, Throat, Mouth: Reports: no symptoms. Respiratory: Reports: no symptoms. Cardiovascular: Reports: no symptoms. Gastrointestinal/Abdominal: Reports: no symptoms. Musculoskeletal: Reports: no symptoms. Skin: Reports: no symptoms. Neurological/Psychological: Reports: no symptoms. All Other Systems: Reviewed and Negative Physical Exam Physical Exam General Appearance: well developed/nourished, mild distress Head: atraumatic Eyes: Bilateral: PERRL, EOMI. Ears, Nose, Throat, Mouth: hearing grossly normal Neck: normal inspection, supple, full range of motion Respiratory: normal breath sounds Cardiovascular: regular rate/rhythm Gastrointestinal: soft, non-tender Back: normal inspection, muscle spasm, no vertebral tenderness Extremities: normal range of motion, bilateral forearms with mild erythematous faint rash, without tenderness, warmth, lymphangitic streaking. NOT urticaria Neurologic/Psych: awake, alert, oriented x 3, normal mood/affect Skin: intact, normal color, warm/dry Comments: dtr's, strength are intact in lower extremities. light touch subjectively diminished in lower extremities to knee bilaterally. Core Measures CVA/TIA Diagnosis: No Progress Differential Diagnosis: myofascial strain, sciatica, chronic pain Plan of Care: Current Medications Sig/Darrin Start time Last Medication Dose Stop Time Status Admin Cyclobenzaprine HCl 10 MG ONCE ONE 12/02 44 CAN (Flexeril 10MG Tab) 12/02 45 Departure Departure Disposition: HOME OR SELF CARE Condition: Stable Clinical Impression Primary Impression: Chronic back pain Secondary Impressions: Rash Referrals: Day Santos APRN (PCP/Family) Departure Forms: Customer Survey General Discharge Information Prescriptions: Current Visit Scripts Cyclobenzaprine HCl 1 TAB PO TID PRN muscle spasm #20 TAB Comments pt with benign exam, benign rash... gave supportive medications... will intensify treatment with flexeril and acetaminophen. intensify treatment with flexeril and acetaminophen.
[2017-12-02] MEDS ORDERED: CYCLOBENZAPRINE10 M1 PO (00:37)
== END 2017-12-02 01:02 ==
LOC: ERH 00:16
DX: M54.5 Low back pain (principal); R21 Rash and other nonspecific skin eruption

== ENCOUNTER 2017-12-29 13:50 | Emergency (ER) | payer OTHER, MEDICARE ==
[~2017-12-29] VITALS: Ht 167.6 cm; Wt 83.9 kg
[~2017-12-29 13:50] MED LIST changes: +BACLOFEN10 M1 PO; +NORCO 5-325 TA1 EACH PO
--- NOTE | 2017-12-29 15:13 | ED GENERAL ADULT ---
History of Present Illness General Chief Complaint: General Adult Stated Complaint: PT NEEDS SUGAR CHECK AND INSULIN Source: patient Exam Limitations: no limitations Vital Signs & Intake/Output Vital Signs & Intake/Output Vital Signs Date Time Temp Pulse Resp B/P B/P Pulse O2 O2 Flow FiO2 Mean Ox Delivery Rate 12/29 1710 97.1 72 20 126/82 97 Room Air 12/29 1620 99.2 76 18 110/72 95 Room Air 12/29 1359 97.0 103 20 100/70 98 Room Air Allergies Coded Allergies: Penicillins (RASH, ABD PAIN 10/22/16) Reconcile Medications Aripiprazole (Abilify) 10 MG TABLET 1 TAB PO QAM MENTAL HEALTH (Reported) Azithromycin (Zithromax) 250 MG TABLET 1 DP PO AD mastoid swelling 2 the first day followed by 1 for days 2-5 Baclofen 10 MG TABLET 1 TAB PO TIDPRN PRN muscle spasm/strain BENAZEPRIL/HYDROCHLOROTHIAZIDE (Benazepril-Hctz 10-12.5 MG Tab) 1 TAB TAB 1 TAB PO QAM BP (Reported) Benazepril/Hydrochlorothiazide (Benazepril-Hctz 10-12.5 MG Tab) 10 MG-12.5 MG TABLET 1 TAB PO DAILY BP (Reported) Benztropine Mesylate 0.5 MG TAB 1 TAB PO QPM MENTAL HEALTH (Reported) Benztropine Mesylate 0.5 MG TABLET 1 TAB PO BID ANXIETY (Reported) Colesevelam Hydrochloride (Welchol) 625 MG TABLET 2 TAB PO BID CHOLESTEROL ( Reported) Cyclobenzaprine HCl 10 MG TABLET 1 TAB PO TID PRN MUSCLE SPASMS Cyclobenzaprine HCl 10 MG TABLET 1 TAB PO TID PRN muscle spasm Diclofenac Sodium 75 MG TABLET.DR 1 TAB PO BID PRN PAIN Divalproex Sodium (Divalproex Sodium ER) 500 MG TAB.ER.24H 2 TAB PO BID SEE MED NOTE (Reported) Empagliflozin (Jardiance) 10 MG TABLET 1 TAB PO DAILY DIABETES (Reported) ERGOCALCIFEROL (VITAMIN D2) (Ergocalciferol (Vitamin D2)) 50,000 IU CAP 1 CAP PO QTUES SUPPLEMENT (Reported) Ezetimibe (Zetia) 10 MG TAB 1 TAB PO QPM CHOLESTEROL (Reported) Gabapentin 300 MG CAPSULE 1 CAP PO TID NEUROPATHY (Reported) Glimepiride (Amaryl) 4 MG TAB 1 TAB PO BID DIABETES (Reported) Glimepiride 4 MG TABLET 1 TAB PO DAILY DM (Reported) Hydrocodone/Acetaminophen (Macon 5-325 Tablet) 5 MG-325 MG TABLET 1-2 TAB PO Q4-6 PRN PRN severe pain Ibuprofen 600 MG TABLET 1 TAB PO Q6P PRN PAIN with food Ibuprofen 600 MG TABLET 1 TAB PO Q6P PRN pain with food Ibuprofen 600 MG TABLET 1 TAB PO TID PRN PAIN with food Liraglutide (Victoza 3-Сергей) 0.6 MG/0.1 ML PEN.INJCTR 1.8 MG SC DAILY DIABETES (Reported) METFORMIN HCL (Metformin HCl) 1,000 MG TABLET 1 TAB PO BID DIABETES (Reported ) Nilsu-0-Ltrl Ethyl Esters (Lovaza) 1 GM CAP 2 CAP PO BID CHOLESTEROL ( Reported) Pravastatin Sodium 20 MG TABLET 1 TAB PO DAILY CHOL (Reported) Simvastatin (Zocor) 20 MG TAB 1 TAB PO QPM CHOLESTEROL (Reported) Triamcinolone Acetonide 0.5 % CREAM..G. 1 BERTIN TOP BID rash apply to affected area(s) Triage Note: PT TO ED REQUESTING BLOOD SUGAR CHECK. STATES THIS AM AT 0800 WHEN HE CHECKED HIS SUGAR IT WAS 421. STATES HE TOOK HIS PRESCRIBED DIABETES MEDS AND DRANK A LOT OF WATER. FINGERSTICK IN TRIAGE 142. Triage Nurses Notes Reviewed? yes Onset: Abrupt Duration: day(s): Timing: recent history Injury Environment: home No Modifying Factors: none HPI: 47-year-old male comes into the emergency room with complaints of his blood sugar being elevated earlier today. Patient had his visiting nurse come in his sugar was over 400 and he was told to come here to the hospital. He denies any lightheaded dizziness chest pain shortness of breath fever chills vomiting. Some increased frequency with urination. He also complains of pain behind his left ear which he noticed today. Sharp. Throbbing. (Eladio Vale) Past History Travel History Traveled to [place] past 21 day No Medical History Any Pertinent Medical History? 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 No (Eladio Vale) Review of Systems Review of Systems Constitutional: Reports: no symptoms. EENTM: Reports: see HPI. Respiratory: Reports: no symptoms. Cardiovascular: Reports: no symptoms. GI: Reports: no symptoms. Genitourinary: Reports: no symptoms. Musculoskeletal: Reports: no symptoms. Skin: Reports: no symptoms. Neurological/Psychological: Reports: no symptoms. Hematologic/Endocrine: Reports: see HPI. Immunologic/Allergic: Reports: no symptoms. All Other Systems: Reviewed and Negative (Eladio Vale) Physical Exam Physical Exam General Appearance: well developed/nourished, no apparent distress, alert, awake Head: atraumatic, normal appearance Eyes: Bilateral: normal appearance. Ears, Nose, Throat: normal ENT inspection, hearing grossly normal, tenderness and swelling to left mastoid, cerumen impaction bilaterally in ears, Neck: normal inspection Respiratory: no respiratory distress Cardiovascular: regular rate/rhythm Back: normal inspection Extremities: normal inspection, normal range of motion, no edema Neurologic/Psych: awake, alert, oriented x 3, normal gait Skin: intact, normal color Core Measures ACS in differential dx? No CVA/TIA Diagnosis: No Sepsis Present: No Sepsis Focused Exam Completed? No (Eladio Vale) Progress Differential Diagnoses I considered the following diagnoses in my evaluation of the patient: DKA, hyperosmolar, dehydration, mastoiditis, otitis media, otitis externa, Plan of Care: Orders Procedure Date/time Status COMPREHENSIVE METABOLIC PANEL 12/29 1513 Complete CBC WITHOUT DIFFERENTIAL 12/29 1513 Complete Laboratory Tests 12/29/17 1530: Anion Gap 12, Estimated GFR > 60, BUN/Creatinine Ratio 15.0, Glucose 165 H, Calcium 10.0, Total Bilirubin 0.6, AST 21, ALT 29, Alkaline Phosphatase 47, Total Protein 6.9, Albumin 4.2, Globulin 2.7, Albumin/Globulin Ratio 1.6, CBC w Diff NO MAN DIFF REQ, RBC 4.98, MCV 88.3, MCH 30.5, MCHC 34.5, RDW 14.3, MPV 7.8 , Gran % 49.4, Lymphocytes % 40.0, Monocytes % 6.0, Eosinophils % 4.0, Basophils % 0.6, Absolute Granulocytes 3.8, Absolute Lymphocytes 3.1, Absolute Monocytes 0.5, Absolute Eosinophils 0.3, Absolute Basophils 0 Diagnostic Imaging: Viewed by Me: CT Scan. Discussed w/RAD: CT Scan. Radiology Impression: PATIENT: VIKY PAK PRESENT AGE: 47 PATIENT ACCOUNT NO: [id number] : 69 LOCATION: [facility] ORDERING PHYSICIAN: Eladio PEREZ SERVICE DATE: 12/29/17 EXAM TYPE : CAT - CT INT AUD CANALS WO IV CONT EXAMINATION: CT INTERNAL AUDITORY CANALS WITHOUT CONTRAST CLINICAL INFORMATION: Left-sided swelling. Assess for mastoiditis. COMPARISON: Head CT from 09/10/2015. TECHNIQUE: CT scanning through the temporal bones was performed without contrast. Angled axial and coronal reformatted images were acquired. DLP: 570 mGy-cm FINDINGS: On the right, there is platelike and nodular cerumen within the external auditory canal which otherwise appears unremarkable. The tympanic membrane is not thickened. The middle ear cavity is clear. The ossicles are normally formed and articulate normally. The facial nerve runs a normal course. The inner ear structures appear morphologically normal. No abnormal demineralization within the otic capsule. The superior semicircular canal is covered by bone. The vestibular aqueduct is not enlarged. The internal auditory canal appears unremarkable. The mastoid air cells are well pneumatized and clear. On the left, there is some platelike and nodular debris within the external auditory canal, which is otherwise unremarkable. The tympanic membrane is not thickened. The middle ear cavities clear. The ossicles are normally formed and articulate normally. The facial nerve runs a normal course. The inner ear structures appear morphologically normal. No abnormal demineralization within the otic capsule. The superior semicircular canals covered by bone, albeit somewhat thinly at the apex of its arc. The vestibular aqueduct is not enlarged. The internal auditory canal appears unremarkable. The mastoid air cells are well pneumatized and clear. There is no osseous erosive change. A BB is placed in the left retroauricular region, subjacent to which there is no definitive soft tissue thickening or stranding. There is some minor skin thickening in this locale. There is moderate inflammatory disease within the left maxillary sinus with sclerosis of the kapoor compatible with the sequela of chronic inflammation. Mild mucosal thickening within the right maxillary sinus, also with mildly sclerotic kapoor. There is sclerotic thickening of the sphenoid sinus kapoor with mild mucosal thickening within both the sphenoid air cells, although the sphenoid ostia are patent. There is patchy opacification of the right-sided ethmoid air cells and mild mucosal thickening in the frontal air cells. The nasal cavity is clear. The nasopharynx is symmetric. The temporal mandibular joints articulate normally. The orbits appear normal. The imaged intracranial compartment demonstrates no acute abnormality. The imaged parotid glands appear normal. IMPRESSION: Unremarkable CT appearance of the temporal bones bilaterally. The mastoid air cells are bilaterally well pneumatized and clear. No evidence of mastoiditis. Scattered inflammatory disease within the paranasal sinuses, with the sequela of chronic inflammation seen in the maxillary and sphenoid air cells bilaterally. DICTATED BY: Jayson Klein MD DATE/TIME DICTATED:12/29/171626 DIE FORGER:CYRUS DATE/TIME TRANSCRIBED:12/29/171626 CONFIDENTIAL, DO NOT COPY WITHOUT APPROPRIATE AUTHORIZATION. <Electronically signed in Other Vendor System> SIGNED BY: Jayson Klein MD 12/29/171638 Initial ED EKG: none (Eladio Vale) Departure Departure Disposition: HOME OR SELF CARE Condition: Stable Clinical Impression Primary Impression: Diabetes Secondary Impressions: Mastoid pain Referrals: Citlali FAIR,Day Crowell APRN (PCP/Family) Additional Instructions: Take Augmentin as prescribed. Follow-up with ear nose and throat doctor. Pickup dubrex to use in the ear bilaterally to help soften wax. Please go over all results of today's visit with your primary care doctor. Contact your primary care doctor to let them know you were here in the emergency room. There may be nonspecific findings which may not be related to your visit today here in the emergency room but may require further evaluation and chronic monitoring by your primary care doctor. If you had a laceration today the chance of foreign body always remains. You should follow-up with your primary care doctor for recheck in 3-5 days for a wound check. If you had an x-ray done there is a chance that a fracture could have been missed on initial read and you should follow-up with your primary care doctor for repeat x-rays if symptoms persist. If your blood pressure was elevated here in the emergency room please have rechecked by hyour primary care doctor within the next 48. If you were prescribed a narcotic here in the emergency room or any type of controlled substances you're not allowed to drive while taking this medication or operate any type of heavy machinery. Narcotics can make you feel lightheaded dizziness nausea and can cause constipation. You may need to citrus picker a stool softener. Thank you for choosing [facility] emergency room. Please return to the emergency room immediately if you have any other concerns worsening of symptoms. Departure Forms: Customer Survey General Discharge Information Prescriptions: Current Visit Scripts Azithromycin (Zithromax) 1 DP PO AD #6 TAB 2 the first day followed by 1 for days 2-5 (Eladio Vale) PA/VINYL FLOORING INSTALLER Co-Sign Statement Statement: ED Attending supervision documentation- [] I saw and evaluated the patient. I have also reviewed all the pertinent lab results and diagnostic results. I agree with the findings and the plan of care as documented in the PA's/VINYL FLOORING INSTALLER's documentation. [X] I have reviewed the ED Record and agree with the PA's/VINYL FLOORING INSTALLER's documentation. [] Additions or exceptions (if any) to the PAs/VINYL FLOORING INSTALLER's note and plan are summarized below: [] (Pop FAIR,Vicente Cohen) Critical Care Note Critical Care Note Critical Care Time: non-applicable (Eladio Vale) ED Attending Observation Initial Observation Note: I have seen and personally examined VIKY PAK on 12/29/17 at 1743. I agree with the current emergency department documentation. The disposition (admission or discharge) is uncertain at this time, he needs a period of observation for the following reason(s): The ED Nurse caring for this patient has been personally informed as to what the patient is being observed for. (Eladio Vale)
[2017-12-29 15:45] LABS: ABSOLUTE BASOPHIL COUNT 0 /CUMM (0.0-0.2); ABSOLUTE EOSINOPHIL COUNT 0.3 /CUMM (0.0-0.7); ABSOLUTE GRANULOCYTE CT 3.8 /CUMM (1.4-6.5); ABSOLUTE LYMPH COUNT 3.1 /CUMM (1.2-3.4); ABSOLUTE MONOCYTE COUNT 0.5 /CUMM (0.10-0.60); BASOPHIL % 0.6 % (0.0-2.0); GRANULOCYTE % 49.4 % (42.2-75.2); HEMATOCRIT 43.9 % (42-52); MEAN CORPUSCULAR HGB 30.5 PG (27.0-31.0); MEAN CORPUSCULAR HGB CONC 34.5 G/DL (33.0-37.0); MEAN CORPUSCULAR VOLUME 88.3 FL (80.0-94.0); MEAN PLATELET VOLUME 7.8 FL (7.4-10.4); PLATELET COUNT 232 /CUMM (130-400); RBC DISTRIBUTION WIDTH 14.3 % (11.5-14.5); RED BLOOD CELL CT 4.98 /CUMM (4.70-6.10); WHITE BLOOD CELL COUNT 7.8 /CUMM (4.8-10.8)
--- NOTE | 2017-12-29 16:39 | CT SCAN REPORT ---
EXAMINATION: CT INTERNAL AUDITORY CANALS WITHOUT CONTRAST CLINICAL INFORMATION: Left-sided swelling. Assess for mastoiditis. COMPARISON: Head CT from 09/10/2015. TECHNIQUE: CT scanning through the temporal bones was performed without contrast. Angled axial and coronal reformatted images were acquired. DLP: 570 mGy-cm FINDINGS: On the right, there is platelike and nodular cerumen within the external auditory canal which otherwise appears unremarkable. The tympanic membrane is not thickened. The middle ear cavity is clear. The ossicles are normally formed and articulate normally. The facial nerve runs a normal course. The inner ear structures appear morphologically normal. No abnormal demineralization within the otic capsule. The superior semicircular canal is covered by bone. The vestibular aqueduct is not enlarged. The internal auditory canal appears unremarkable. The mastoid air cells are well pneumatized and clear. On the left, there is some platelike and nodular debris within the external auditory canal, which is otherwise unremarkable. The tympanic membrane is not thickened. The middle ear cavities clear. The ossicles are normally formed and articulate normally. The facial nerve runs a normal course. The inner ear structures appear morphologically normal. No abnormal demineralization within the otic capsule. The superior semicircular canals covered by bone, albeit somewhat thinly at the apex of its arc. The vestibular aqueduct is not enlarged. The internal auditory canal appears unremarkable. The mastoid air cells are well pneumatized and clear. There is no osseous erosive change. A BB is placed in the left retroauricular region, subjacent to which there is no definitive soft tissue thickening or stranding. There is some minor skin thickening in this locale. There is moderate inflammatory disease within the left maxillary sinus with sclerosis of the kapoor compatible with the sequela of chronic inflammation. Mild mucosal thickening within the right maxillary sinus, also with mildly sclerotic kapoor. There is sclerotic thickening of the sphenoid sinus kapoor with mild mucosal thickening within both the sphenoid air cells, although the sphenoid ostia are patent. There is patchy opacification of the right-sided ethmoid air cells and mild mucosal thickening in the frontal air cells. The nasal cavity is clear. The nasopharynx is symmetric. The temporal mandibular joints articulate normally. The orbits appear normal. The imaged intracranial compartment demonstrates no acute abnormality. The imaged parotid glands appear normal. IMPRESSION: Unremarkable CT appearance of the temporal bones bilaterally. The mastoid air cells are bilaterally well pneumatized and clear. No evidence of mastoiditis. Scattered inflammatory disease within the paranasal sinuses, with the sequela of chronic inflammation seen in the maxillary and sphenoid air cells bilaterally.
[2017-12-29] MEDS ORDERED: ZITHROMAX250 M2 PO (16:50)
[2017-12-29 17:10] VITALS: BP 126/82
== END 2017-12-29 17:10 ==
LOC: ERH 13:50
PROVIDERS: Physician Assistant Medical
DX: E11.9 Type 2 diabetes mellitus without complications (principal); R51 Headache

== ENCOUNTER 2018-01-11 11:27 | Emergency (ER) | payer OTHER, MEDICARE ==
[~2018-01-11] VITALS: Ht 167.6 cm; Wt 70.3 kg
[~2018-01-11 11:27] MED LIST changes: -ABILIFY 10 MG10 MG PO; +ABILIFY15 M1 PO; +DIVALPROEX SOD500 M3 PO; -DIVALPROEX SOD500 MG PO; +METFORMIN HCL1000 M1 PO; -METFORMIN HCL1000 MG PO; -WELCHOL 625 MG625 MG PO; +WELCHOL625 MG PO; +ZETIA10 M1 PO; -ZETIA10 MG PO; +ZITHROMAX250 M2 PO
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
[2018-01-11] MEDS ORDERED: BACLOFEN10 M1 PO (14:30)
[2018-01-11 15:28] LABS: ABSOLUTE BASOPHIL COUNT 0 /CUMM (0.0-0.2); ABSOLUTE EOSINOPHIL COUNT 0.3 /CUMM (0.0-0.7); ABSOLUTE GRANULOCYTE CT 3.8 /CUMM (1.4-6.5); ABSOLUTE LYMPH COUNT 2.5 /CUMM (1.2-3.4); ABSOLUTE MONOCYTE COUNT 0.4 /CUMM (0.10-0.60); BASOPHIL % 0.4 % (0.0-2.0); EOSINOPHIL % 3.6 % (0-5); GRANULOCYTE % 54.1 % (42.2-75.2); HEMATOCRIT 44.2 % (42-52); MEAN CORPUSCULAR HGB 30.7 PG (27.0-31.0); MEAN CORPUSCULAR VOLUME 87.6 FL (80.0-94.0); MEAN PLATELET VOLUME 8.2 FL (7.4-10.4); PLATELET COUNT 218 /CUMM (130-400); RBC DISTRIBUTION WIDTH 14.3 % (11.5-14.5); RED BLOOD CELL CT 5.04 /CUMM (4.70-6.10)
[2018-01-11 15:30] VITALS: BP 129/92
[2018-02-09] MEDS ORDERED: IBUPROFEN800 M1 PO (22:43)
== END 2018-01-11 16:28 ==
LOC: ERH 11:27
PROVIDERS: Emergency Medicine
DX: R53.1 Weakness (principal)

== ENCOUNTER 2018-04-18 22:15 | Emergency (ER) | payer OTHER, MEDICARE ==
[~2018-04-18] VITALS: Ht 167.6 cm; Wt 83.9 kg
[2018-04-18 22:20] VITALS: BP 148/94
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
[2018-04-18] MEDS ORDERED: IBUPROFEN600 M1 PO (23:14)
== END 2018-04-18 23:24 ==
LOC: ERH 22:15
DX: S06.9X9A Unspecified intracranial injury with loss of consciousness of unspecified duration, initial encounter (principal); S00.411A Abrasion of right ear, initial encounter; Y04.8XXA Assault by other bodily force, initial encounter; Y93.01 Activity, walking, marching and hiking; Y92.9 Unspecified place or not applicable